=== PATIENT | male | born 1995 | race Caucasian/White ===

== ENCOUNTER 2016-09-30 14:35 | Emergency (ER) | payer OTHER ==
[~2016-09-30] VITALS: Ht 177.8 cm; Wt 82.0 kg
[~2016-09-30 14:35] MED LIST: CEPH500C PO; HYDR-902 PO; HYDR-906 PO; IBUP-1542 PO; PERCOCET PO; POLY17PO6 PO
[2016-09-30 15:21] VITALS: Ht 177.8 cm; Wt 82.0 kg
[2016-09-30 19:06] LABS: ADD UMIC YES; URINE BILIRUBIN (Dip) NEGATIVE (NEGATIVE); URINE BLOOD (Dip) 1+ (NEGATIVE); URINE COLOR LT. YELLOW (YELLOW); URINE GLUCOSE (Dip) NEGATIVE (NEGATIVE); URINE KETONES (Dip) NEGATIVE (NEGATIVE); URINE LEUKOCYTE ESTERASE (Dip) NEGATIVE (NEGATIVE); URINE NITRITE (Dip) NEGATIVE (NEGATIVE); URINE TOTAL PROTEIN (Dip) NEGATIVE (NEGATIVE); URINE UROBILINOGEN (Dip) 0.2 E.U./dL (0.1-1.0)
--- NOTE | 2016-09-30 19:13 | RADRPT ---
PROCEDURE: Scrotal ultrasound CLINICAL INDICATION: Left scrotal pain TECHNIQUE: Scrotal ultrasound was performed in multiple obliquities. Pineda scale and color imaging was performed. Images were reviewed on high resolution PACS monitors. COMPARISON: None available FINDINGS: The testes are normal in size and echogenicity. There is normal flow to the bilateral testes. No t esticular mass or cyst is identified. There are trace bilateral hydroceles which may be physiologic .. The epididymides are normal. There is no evidence for a varicocele. IMPRESSION: 1. Trace bilateral hydroceles which may be physiologic. 2. Otherwise unremarkable scrotal ultrasound. RPTAT: HJBF .Livan Camejo MD, Date Time Electronically viewed and signed by .Livan Camejo MD, MD on 09/30/2016 19:13 .B/
[2016-09-30 19:17] LABS: SQUAMOUS EPITHELIAL CELL,UR RARE; URINE RBCS 0-2 /HPF (0)
[2016-09-30] MEDS ORDERED: IBUP800T25 PO (19:31)
[2016-09-30] MEDS ORDERED: HYDR-906 PO (19:31)
--- NOTE | 2016-09-30 19:36 | ERD ---
ER Documentation Chief Complaint Date/Time DATE: 09/30/16 TIME: 19:34 Chief Complaint Pt with intermittent AP X 2 months, nausea HPI Patient is a 21-year-old male who presents with intermittent left testicular pain that he has had for 2 months. He admits to occasional nausea but denies any vomiting. Denies any hematuria, dysuria or increased urinary frequency. Denies any penile discharge or recent unprotected sex. Denies fever. Denies any diarrhea. He describes the pain as a tingling sensation and at this time he denies any pain. Denies any swelling. ROS All systems reviewed and are negative except as per history of present illness. Medications Home Meds Active Scripts Hydrocodone/Acetaminophen ([place] 5-325 Tablet) 1 Each Tablet, 1 TAB PO Q6H Y for PAIN, #20 TAB Prov:GERSON SANTAMARIA PA-C 09/30/16 Ibuprofen* (Motrin*) 800 Mg Tab, 800 MG PO Q6, #30 TAB Prov:GERSON SANTAMARIA PA-C 09/30/16 Polyethylene Glycol* (Miralax*) 17 Gm Powd.pack, 17 GM PO DAILY Y for CONSTIPATION, #7 Prov:JOSE JUDD MD 09/24/16 Ibuprofen* (Motrin*) 600 Mg Tab, 600 MG PO Q6H Y for PAIN AND OR ELEVATED TEMP, #30 TAB Prov:ANETTE BURNETT MD 09/18/16 Hydrocodone/Acetaminophen ([place] 5-325 Tablet) 1 Each Tablet, 1 TAB PO Q6H Y for PAIN, #10 TAB Prov:WEST LAWSON PA-C 07/14/16 Hydrocodone/Acetaminophen ([place] 10-325 Tablet) 1 Each Tablet, 1 TAB PO Q6H Y for PAIN, #7 TAB Prov:ANETTE BURNETT MD 07/08/16 Cephalexin* (Cephalexin*) 500 Mg Capsule, 500 MG PO TID, #21 CAP Prov:JUAN DON MD 07/07/16 Oxycodone Hcl/Acetaminophen (Percocet) 1 Tab Tab, 1 TAB PO Q4H Y for MILD PAIN ( 1-3), #1 TAB Prov:JUAN DON MD 07/07/16 Allergies Allergies: Coded Allergies: No Known Allergy (Unverified , 09/30/16) PMhx/Soc History of Surgery: Yes (appendectomy on 07/06/16) Anesthesia Reaction: No Hx Neurological Disorder: No Hx Respiratory Disorders: No Hx Cardiac Disorders: No Hx Psychiatric Problems: No Hx Miscellaneous Medical Probl: No Hx Alcohol Use: Yes (ocassional ) Hx Substance Use: No Hx Tobacco Use: No Smoking Status: Never smoker FmHx Family History: No diabetes Physical Exam Vitals Vital Signs Date Time Temp Pulse Resp B/P Pulse Ox O2 Delivery O2 Flow Rate FiO2 09/30/16 15:21 98.5 69 20 123/65 98 Physical Exam General: well developed, well nourished, alert, nontoxic, no distress Head: normocephalic, atraumatic Neck: Supple, nontender, no lymphadenopathy, no midline tenderness Respiratory: Clear to auscaultation bilaterally, speaks in full sentences, no use of accesory muscles or labored breathing, no rales, ronchi, or wheezing Cardiovascular: RRR, No murmurs GI: soft, non tender, non distended, negative murphys sign, negative mcburneys point tenderness, no cva tenderness bilaterally, no rebound or guarding gu: No inguinal lymphadenopathy, bilateral testicles are nonedematous and nontender, no masses, no penile discharge Results 24 hrs Laboratory Tests Test 09/30/16 18:34 Urine Bilirubin NEGATIVE Urine Clarity CLEAR Urine Color LT. YELLOW Urine Glucose NEGATIVE% Urine Hemoglobin 1+ Urine Ketones NEGATIVE Urine Leukocyte Esterase NEGATIVE Urine Microscopic RBC 0-2/HPF Urine Microscopic WBC 0-2/HPF Urine Nitrite NEGATIVE Urine Specific [place] 1.025 Urine Squamous Epithelial Cells RARE Urine Total Protein NEGATIVE Urine Urobilinogen 0.2 E.U./dL Urine pH 6.0 Procedures/MDM 21-year-old male presents with intermittent testicular pain. His vital signs are all within normal limits and at this time he has no pain. Examination is normal. Ultrasound was ordered and showed possible trace hydrocele which may be physiological otherwise unremarkable. There is no evidence of torsion. He is afebrile. He is tolerating oral intake. His urine did show 1+ hemoglobin otherwise unremarkable. I reviewed the findings with my supervising physician and we agreed this may be inflammatory versus GC chlamydia. Lower suspicion for kidney stone given patient's presentation and physical exam findings. Patient is status post appendectomy. Patient is discharged with pain medications and instructions to follow-up with primary care. Recommended this patient follow up with her primary care doctor within 48 hours or return to the emergency room for any worsening of symptoms. However this time I do believe there is suitable for outpatient management. I answered all their questions and they agreed with the plan and were discharged home. Departure Diagnosis: Primary Impression: Testicular pain Condition: Stable Patient Instructions: Groin Strain Additional Instructions: Call your primary care doctor TOMORROW for an appointment during the next 1-2 days.See the doctor sooner or return here if your condition worsens before your appointment time. GERSON SANTAMARIA PA-C Sep 30, 2016 19:36
[2016-09-30 19:46] VITALS: BP 129/78; PULSE 70; RESP 18; TEMP 98.3
== END 2016-09-30 19:45 | disposition home or self-care (01) ==
LOC: FTE 14:35
DX: N50.812 Left testicular pain (principal)
CPT/HCPCS: 76870; 81001; 87591; Z7502; 81003

== ENCOUNTER 2016-11-03 17:50 | Emergency (ER) | payer OTHER ==
[~2016-11-03] VITALS: Wt 71.2 kg
[~2016-11-03 17:50] MED LIST changes: +IBUP800T25 PO
[2016-11-03] MEDS ORDERED: HYDROCODONE/APAP (10/325) TAB PO ONE (19:00)
[2016-11-03 19:20] LABS: ADD UMIC YES; URINE BILIRUBIN (Dip) NEGATIVE (NEGATIVE); URINE BLOOD (Dip) TRACE (NEGATIVE); URINE COLOR LT. YELLOW (YELLOW); URINE GLUCOSE (Dip) NEGATIVE (NEGATIVE); URINE KETONES (Dip) NEGATIVE (NEGATIVE); URINE LEUKOCYTE ESTERASE (Dip) NEGATIVE (NEGATIVE); URINE NITRITE (Dip) NEGATIVE (NEGATIVE); URINE TOTAL PROTEIN (Dip) TRACE (NEGATIVE); URINE UROBILINOGEN (Dip) 1.0 E.U./dL (0.1-1.0)
[2016-11-03 19:21] LABS: BASOPHILS % 0.5 % (0.0-2.0); EOSINOPHILS # 0.2 10^3/ul (0.0-0.5); EOSINOPHILS % 2.3 % (0.0-7.0); HEMATOCRIT 45.3 % (42.0-52.0); HEMOGLOBIN 15.4 g/dl (14.0-18.0); LYMPHOCYTES % 23.3 % (15.0-51.0); MEAN CORPUSCULAR HEMOGLOBIN 30.3 pg (29.0-33.0); MEAN CORPUSCULAR VOLUME 89.2 fl (82.0-101.0); MEAN PLATELET VOLUME 7.6 fl (7.4-10.4); MONOCYTE # 0.5 10^3/ul (0.3-0.9); MONOCYTES % 5.6 % (0.0-11.0); NEUTROPHIL # 5.9 10^3/ul (1.6-7.5); NEUTROPHILS % 68.3 % (39.0-77.0); PLATELET COUNT 219 10^3/UL (140-440); RED BLOOD COUNT 5.08 10^6/ul (4.70-6.10); UNCORRECTED WBC 8.7 10^3/ul (4.8-10.8); WHITE BLOOD COUNT 8.7 10^3/ul (4.8-10.8)
[2016-11-03 19:22] LABS: CONDITION 1
[2016-11-03 19:31] LABS: ALBUMIN 4.7 g/dl (3.3-4.9); POTASSIUM 4.9 mmol/L (3.5-5.1)
[2016-11-03 19:33] LABS: CREATININE 0.72 mg/dl (0.61-1.24)
--- NOTE | 2016-11-03 19:33 | ERD ---
ER Documentation Chief Complaint Date/Time DATE: 11/03/16 TIME: 19:31 Chief Complaint intermittent abd pain since a few wks. left testicle pain no swelling HPI 21-year-old male with a history of hydrocele and appendectomy in June comes to emergency room with lower abdominal pain that started acutely this afternoon while he was driving. Patient states he has had suprapubic abdominal pain that radiates to his left lower quadrant and has had several episodes of diarrhea that are nonbloody stools. He has had 2 months of scrotal pain, he has been seen here recently and had a scrotal ultrasound that showed hydroceles only. He denies any change of his pain in the scrotum, no fevers or chills or dysuria , urgency or penile discharge or rashes. He denies any fevers, chills, nausea or vomiting. ROS All systems reviewed and are negative except as per history of present illness. Medications Home Meds Active Scripts Dicyclomine Hcl* (Bentyl*) 10 Mg Capsule, 10 MG PO QID, #15 CAP Prov:WEST LAWSON PA-C 11/03/16 Docusate Sodium* (Colace*) 100 Mg Capsule, 100 MG PO TID, #30 CAP Prov:WEST LAWSON PA-C 11/03/16 Hydrocodone/Acetaminophen (Valley 5-325 Tablet) 1 Each Tablet, 1 TAB PO Q6H Y for PAIN, #20 TAB Prov:GERSON SANTAMARIA PA-C 09/30/16 Ibuprofen* (Motrin*) 800 Mg Tab, 800 MG PO Q6, #30 TAB Prov:GERSON SANTAMARIA PA-C 09/30/16 Polyethylene Glycol* (Miralax*) 17 Gm Powd.pack, 17 GM PO DAILY Y for CONSTIPATION, #7 Prov:JOSE JUDD MD 09/24/16 Ibuprofen* (Motrin*) 600 Mg Tab, 600 MG PO Q6H Y for PAIN AND OR ELEVATED TEMP, #30 TAB Prov:ANETTE BURNETT MD 09/18/16 Hydrocodone/Acetaminophen ([place] 5-325 Tablet) 1 Each Tablet, 1 TAB PO Q6H Y for PAIN, #10 TAB Prov:WEST LAWSON PA-C 07/14/16 Hydrocodone/Acetaminophen ([place] 10-325 Tablet) 1 Each Tablet, 1 TAB PO Q6H Y for PAIN, #7 TAB Prov:ANETTE BURNETT MD 07/08/16 Cephalexin* (Cephalexin*) 500 Mg Capsule, 500 MG PO TID, #21 CAP Prov:JUAN DON MD 07/07/16 Oxycodone Hcl/Acetaminophen (Percocet) 1 Tab Tab, 1 TAB PO Q4H Y for MILD PAIN ( 1-3), #1 TAB Prov:JUAN DON MD 07/07/16 Allergies Allergies: Coded Allergies: No Known Allergy (Unverified , 09/30/16) PMhx/Soc History of Surgery: Yes (appendectomy on 07/06/16) Anesthesia Reaction: No Hx Neurological Disorder: No Hx Respiratory Disorders: No Hx Cardiac Disorders: No Hx Psychiatric Problems: No Hx Miscellaneous Medical Probl: No Hx Alcohol Use: Yes (ocassional ) Hx Substance Use: No Hx Tobacco Use: No Physical Exam Vitals Vital Signs Date Time Temp Pulse Resp B/P Pulse Ox O2 Delivery O2 Flow Rate FiO2 11/03/16 20:06 70 16 134/73 100 Room Air 11/03/16 17:56 98.2 92 20 134/66 99 Physical Exam General: Well-developed, well-nourished. The patient appears in no acute distress. HEENT: Head is normocephalic, atraumatic. No scleral icterus. Pupils are equal , round, and reactive. Oral mucous membranes are moist. No pharyngeal erythema. Neck: Supple. Nontender. Lungs: Clear to auscultation. Normal air movement. Heart: Regular rate and rhythm. S1 and S2 are normal. No murmurs, gallops, or rubs. Abdomen: Soft, nontender, nondistended. Bowel sounds are normoactive. exam: performed by Brittani Fam, [employer] gen cremasteric reflex, no masses, no erythema, no rashes Extremities: No clubbing or cyanosis. Normal pulses. Moving extremities x 4. No weakness. Neurologic: Alert and oriented 3. No focal deficits. Skin: Normal turgor. No rash or lesions. Result Diagram: 11/03/16190211/03/161902 Results 24 hrs Laboratory Tests Test 11/03/16 19:03 11/03/16 19:06 Alanine Aminotransferase (ALT/SGPT) 26IU/L Albumin 4.7g/dl Albumin/Globulin Ratio 1.42 Alkaline Phosphatase 74IU/L Anion Gap 18 Aspartate Amino Transf (AST/SGOT) 17IU/L Basophils # 0.010^3/ul Basophils % 0.5% Blood Urea Nitrogen 14mg/dl Calcium Level 9.9mg/dl Carbon Dioxide Level 30mmol/L Chloride Level 104mmol/L Creatinine 0.72mg/dl Direct Bilirubin 0.00mg/dl Eosinophils # 0.210^3/ul Eosinophils % 2.3% Globulin 3.30g/dl Glucose Level 99mg/dl Hematocrit 45.3% Hemoglobin 15.4g/dl Indirect Bilirubin 0.6mg/dl Lipase 55U/L Lymphocytes # 2.010^3/ul Lymphocytes % 23.3% Mean Corpuscular Hemoglobin 30.3pg Mean Corpuscular Hemoglobin Concent 34.0g/dl Mean Corpuscular Volume 89.2fl Mean Platelet Volume 7.6fl Monocytes # 0.510^3/ul Monocytes % 5.6% Neutrophils # 5.910^3/ul Neutrophils % 68.3% Nucleated Red Blood Cells # 0.010^3/ul Nucleated Red Blood Cells % 0.0/100WBC Platelet Count 82563^3/UL Potassium Level 4.9mmol/L Red Blood Count 5.0810^6/ul Red Cell Distribution Width 13.0% Sodium Level 147mmol/L Total Bilirubin 0.6mg/dl Total Protein 8.0g/dl White Blood Count 8.710^3/ul Urine Bilirubin NEGATIVE Urine Clarity CLEAR Urine Color LT. YELLOW Urine Glucose NEGATIVE% Urine Hemoglobin TRACE Urine Ketones NEGATIVE Urine Leukocyte Esterase NEGATIVE Urine Microscopic RBC 2-5/HPF Urine Microscopic WBC 0-2/HPF Urine Nitrite NEGATIVE Urine Specific [place] 1.015 Urine Squamous Epithelial Cells OCCASIONAL Urine Total Protein TRACE Urine Urobilinogen 1.0 E.U./dL Urine pH 8.0 Current Medications Medications (Trade) Dose Ordered Sig/Chepe Route PRN Reason Start Time Stop Time Status Last Admin Dose Admin Acetaminophen/ Hydrocodone Bitart (Valley ([id number])) 1 tab ONCE ONCE PO 11/03/16 19:00 11/03/16 19:01 DC 11/03/16 19:00 PROCEDURE: CT abdomen and pelvis without IV contrast. CLINICAL INDICATION: Abdominal pain TECHNIQUE: CT scan of the abdomen and pelvis without contrast was performed on the [employer] volumetric [address] scanner. The patient was scanned without intravenous contrast. Coronal and sagittal reformatted images were obtained from the axial source images. The CTDI vol is 10.2 mGy and the DLP is 609.76 mGy -cm. COMPARISON: None. FINDINGS: CT abdomen: The lung bases are clear. The heart size is not enlarged and is without pericardial thickening or effusion. The liver is normal in size and density and is without focal mass or intrahepatic biliary dilatation. The spleen is normal in size and homogeneous in density. The stomach is grossly unremarkable. The pancreas as visualized is normal. The gallbladder and biliary tree are unremarkable and there is no evidence for common bile duct dilatation. The adrenal glands are symmetric and normal. The kidneys are symmetrically unremarkable as well. No renal calculus or obstructive uropathy or mass lesion is seen. The aorta is of normal in caliber. There is no retroperitoneal lymphadenopathy. The socorro hepatis region is clear. The large bowel is stool- filled. The small and large bowel and mesentery, as visualized, are otherwise unremarkable. No inflammatory changes in the periappendiceal region is seen. CT pelvis: The pelvic organs are normal. The pelvic sidewalls and inguinal regions are clear. No pelvic mass, lymphadenopathy, or free fluid is seen. No acute inflammation is seen. The urinary bladder is within normal limits. The surrounding osseous structures are unremarkable. No osteolytic or osteoblastic lesion is detected. IMPRESSION: 1. No acute pathology in the abdomen and pelvis. 2. Stool filled large bowel. RPTAT: HPNM Physician Janell Date Time Electronically viewed and signed by Physician Janell on 11/03/2016 19 :51 / PROCEDURE: Scrotal ultrasound CLINICAL INDICATION: Testicular pain TECHNIQUE: Multiple cheng scale, color Doppler, and spectral Doppler images of the scrotum were obtained. Images were reviewed on a high-resolution PACS workstation. COMPARISON: 09/30/2016 FINDINGS: The right testes measures 2.7 x 2.4 x 4.4 cm and the left testes measures 4.7 x 2.1 x 2.[address]stes are normal in size and echogenicity with normal color flow. The right epididymis measures 8.6 x 6.3 x 7.7 mm and the left epididymis measures 12.8 x 4.9 x 4.5 mm. The epididymis bilaterally are normal in size and echogenicity. Small bilateral hydroceles are again seen. No varicocele is identified. IMPRESSION: Small bilateral hydroceles again seen which have not changed significantly. RPTAT: HPNM Physician Janell Date Time Electronically viewed and signed by Physician Janell on 11/03/2016 19 :53 / CC: [facility] ED course: Patient was given Valley for pain. Labs and urine as well as ultrasound CT were ordered. MDM: 21-year-old male with history of acute appendicitis comes in with scrotal pain and abdominal pain. Patient's workup was negative for any acute or surgical process, including testicular torsion. This patient appears to have chronic abdominal pain, he does have evidence of constipation seen on the CT scan will be treated for this. He was asked to discontinue narcotic medication as this may exacerbate his pain. Departure Diagnosis: Primary Impression: Abdominal pain Condition: WEST Navarrete PA-C Nov 03, 2016 19:33
[2016-11-03 19:34] LABS: ALBUMIN/GLOBULIN RATIO 1.42; BILIRUBIN,INDIRECT 0.6 mg/dl (0-1.1); BILIRUBIN,TOTAL 0.6 mg/dl (0.2-1.3); CALCIUM 9.9 mg/dl (8.4-10.2)
[2016-11-03 19:42] LABS: SQUAMOUS EPITHELIAL CELL,UR OCCASIONAL
--- NOTE | 2016-11-03 19:51 | RADRPT ---
PROCEDURE: CT abdomen and pelvis without IV contrast. CLINICAL INDICATION: Abdominal pain TECHNIQUE: CT scan of the abdomen and pelvis without contrast was performed on the [employer] volumetric [address] scanner. The patient was scanned without intravenous contrast. Coronal and sagittal refo rmatted images were obtained from the axial source images. The CTDI vol is 10.2 mGy and the DLP is 6 09.76 mGy-cm. COMPARISON: None. FINDINGS: CT abdomen: The lung bases are clear. The heart size is not enlarged and is without pericardial thickening or e ffusion. The liver is normal in size and density and is without focal mass or intrahepatic biliary dilatation . The spleen is normal in size and homogeneous in density. The stomach is grossly unremarkable. T he pancreas as visualized is normal. The gallbladder and biliary tree are unremarkable and there is no evidence for common bile duct dilatation. The adrenal glands are symmetric and normal. The kid neys are symmetrically unremarkable as well. No renal calculus or obstructive uropathy or mass lesi on is seen. The aorta is of normal in caliber. There is no retroperitoneal lymphadenopathy. The socorro hepatis region is clear. The large bowel is stool-filled. The small and large bowel and mesentery, as visu alized, are otherwise unremarkable. No inflammatory changes in the periappendiceal region is seen. CT pelvis: The pelvic organs are normal. The pelvic sidewalls and inguinal regions are clear. No pelvic mass, lymphadenopathy, or free fluid is seen. No acute inflammation is seen. The urinary bladder is wit hin normal limits. The surrounding osseous structures are unremarkable. No osteolytic or osteoblastic lesion is detect ed. IMPRESSION: 1. No acute pathology in the abdomen and pelvis. 2. Stool filled large bowel. RPTAT: HPNM Physician Janell Date Time Electronically viewed and signed by Physician Janell on 11/03/2016 19:51 /
--- NOTE | 2016-11-03 19:53 | RADRPT ---
PROCEDURE: Scrotal ultrasound CLINICAL INDICATION: Testicular pain TECHNIQUE: Multiple cheng scale, color Doppler, and spectral Doppler images of the scrotum were obt ained. Images were reviewed on a high-resolution PACS workstation. COMPARISON: 09/30/2016 FINDINGS: The right testes measures 2.7 x 2.4 x 4.4 cm and the left testes measures 4.7 x 2.1 x 2.[address] stes are normal in size and echogenicity with normal color flow. The right epididymis measures 8.6 x 6.3 x 7.7 mm and the left epididymis measures 12.8 x 4.9 x 4.5 mm. The epididymis bilaterally are normal in size and echogenicity. Small bilateral hydroceles are again seen. No varicocele is identi fied. IMPRESSION: Small bilateral hydroceles again seen which have not changed significantly. RPTAT: HPNM Physician Janell Date Time Electronically viewed and signed by Physician Janell on 11/03/2016 19:53 /
[2016-11-03] MEDS ORDERED: DOCU-144 PO (19:59)
[2016-11-03] MEDS ORDERED: DICY10CA60 PO (19:59)
[2016-11-03 20:06] VITALS: BP 134/73; PULSE 70; RESP 16
== END 2016-11-03 20:09 | disposition home or self-care (01) ==
LOC: FTE 17:50
DX: R10.30 Lower abdominal pain, unspecified (principal)
CPT/HCPCS: 74176; 76870; 80053; 81001; 83690; 85025; Z7610; 36415; 81003; 99285

== ENCOUNTER 2017-01-17 22:23 | Emergency (ER) | payer OTHER ==
[~2017-01-17] VITALS: Ht 177.8 cm; Wt 81.5 kg
[~2017-01-17 22:23] MED LIST changes: +DICY10CA60 PO; +DOCU-144 PO
[2017-01-17 22:30] VITALS: Ht 177.8 cm; Wt 81.5 kg
[2017-01-17] MEDS ORDERED: IBUP-1542 PO (23:47)
--- NOTE | 2017-01-17 23:54 | ERA ---
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 Patient now has increased pain in the right groin area where he sustained the injury. Patient has tried ibuprofen and conservative therapy with mild to moderate relief. Patient's pain worsens with movement. Patient has not consistently tried conservative therapy. Patient denies dysuria , hematuria, loss of bowel or bladder function, radiation of pain down the leg, loss of sensation pain in the lower leg. Rest improves symptoms. ROS All systems reviewed and are negative except as per history of present illness. Medications Home Meds Active Scripts Ibuprofen* (Motrin*) 600 Mg Tab, 600 MG PO Q6, #30 TAB Prov:NELLIE CLEMENTE PA-C 01/17/17 Dicyclomine Hcl* (Bentyl*) 10 Mg Capsule, 10 MG PO QID, #15 CAP Prov:WEST LAWSON PA-C 11/03/16 Docusate Sodium* (Colace*) 100 Mg Capsule, 100 MG PO TID, #30 CAP Prov:WEST LAWSON PA-C 11/03/16 Hydrocodone/Acetaminophen ([place] 5-325 Tablet) 1 Each Tablet, 1 TAB PO Q6H Y for PAIN, #20 TAB Prov:GERSON SANTAMARIA PA-C 09/30/16 Ibuprofen* (Motrin*) 800 Mg Tab, 800 MG PO Q6, #30 TAB Prov:GERSON SANTAMARIA PA-C 09/30/16 Polyethylene Glycol* (Miralax*) 17 Gm Powd.pack, 17 GM PO DAILY Y for CONSTIPATION, #7 Prov:JOSE JUDD MD 09/24/16 Ibuprofen* (Motrin*) 600 Mg Tab, 600 MG PO Q6H Y for PAIN AND OR ELEVATED TEMP, #30 TAB Prov:ANETTE BURNETT MD 09/18/16 Hydrocodone/Acetaminophen ([place] 5-325 Tablet) 1 Each Tablet, 1 TAB PO Q6H Y for PAIN, #10 TAB Prov:WEST LAWSON PA-C 07/14/16 Hydrocodone/Acetaminophen ([place] 10-325 Tablet) 1 Each Tablet, 1 TAB PO Q6H Y for PAIN, #7 TAB Prov:ANETTE BURNETT MD 07/08/16 Cephalexin* (Cephalexin*) 500 Mg Capsule, 500 MG PO TID, #21 CAP Prov:JUAN DON MD 07/07/16 Oxycodone Hcl/Acetaminophen (Percocet) 1 Tab Tab, 1 TAB PO Q4H Y for MILD PAIN ( 1-3), #1 TAB Prov:JUAN DON MD 07/07/16 Allergies Allergies: Coded Allergies: No Known Allergy (Unverified , 01/17/17) PMhx/Soc History of Surgery: Yes (appendectomy on 07/06/16) Anesthesia Reaction: No Hx Neurological Disorder: No Hx Respiratory Disorders: No Hx Cardiac Disorders: No Hx Psychiatric Problems: No Hx Miscellaneous Medical Probl: No Hx Alcohol Use: Yes (ocassional ) Hx Substance Use: No Hx Tobacco Use: No Physical Exam Vitals Vital Signs Date Time Temp Pulse Resp B/P Pulse Ox O2 Delivery O2 Flow Rate FiO2 01/17/17 22:30 98.0 60 20 122/72 100 Physical Exam Const: Well-appearing 21-year-old male in no acute distress. Head: Atraumatic Eyes: Normal Conjunctiva ENT: Normal External Ears, Nose and Mouth. Neck: Full range of motion..~ No meningismus. Resp: Clear to auscultation bilaterally Cardio: Regular rate and rhythm, no murmurs Abd: Soft, non tender, non distended. Normal bowel sounds Skin: No petechiae or rashes Back: No midline or flank tenderness Ext: No cyanosis, or edema. Negative Syd test. Negative straight leg raise. No tenderness to palpation. Pain with extension and abduction internal and external rotation. Passive external rotation elicits pain as well. Neur: Awake and alert Psych: Normal Mood and Affect Procedures/MDM Most likely diagnosis at this time is a strain/sprain of groin muscle. Patient has a negative Syd test and a negative straight leg test. Patient denies any back pain. At this time I have low suspicion for spinal cord involvement. We will go ahead and discharge patient with conservative therapy including rice treatment and ibuprofen. Have instructed the patient to return to clinic if symptoms worsen or persist. Have instructed the patient to also stay off the injured area and trampolines. He says he does not need to be jumping for work. Vitals are stable and he is ready for discharge. Departure Diagnosis: Primary Impression: Strain of muscle of right groin region Additional Impression: Injury of groin Qualified Code: S39.91XA - Injury of groin, initial encounter Condition: Stable Patient Instructions: Groin Strain Additional Instructions: Follow up with your PCP within the next 1-3 days for a more thorough evaluation and a possible referral to a specialist. Return the the emergency department immediately if symptoms worsen or change. If you have any questions regarding medications, ask your pharmacist or us before you leave. If any adverse reactions occur while taking your medications, discontinue the treatment and return to the emergency department immediately. Take your medications as directed, and complete the entire course of treatment. NELLIE CLEMENTE PA-C Jan 17, 2017 23:54
== END 2017-01-17 23:50 | disposition home or self-care (01) ==
LOC: FTE 22:23
DX: S39.011A Strain of muscle, fascia and tendon of abdomen, initial encounter (principal); X50.9XXA Other and unspecified overexertion or strenuous movements or postures, initial encounter; Y92.9 Unspecified place or not applicable
CPT/HCPCS: 99283

== ENCOUNTER 2017-12-23 22:18 | Emergency (ER) | END 2017-12-24 03:04 | disposition left against medical advice (07) ==

== ENCOUNTER 2018-04-15 11:31 | Emergency (ER) | END 2018-04-15 13:28 | disposition home or self-care (01) ==

== ENCOUNTER 2018-07-05 10:06 | Emergency (ER) | END 2018-07-05 14:25 | disposition home or self-care (01) ==

== ENCOUNTER 2018-09-15 16:29 | Emergency (ER) | END 2018-09-15 19:27 | disposition home or self-care (01) ==

== ENCOUNTER 2018-09-21 13:54 | Emergency (ER) | END 2018-09-21 18:25 | disposition home or self-care (01) ==

== ENCOUNTER 2018-10-12 14:48 | Emergency (ER) | payer OTHER ==
[~2018-10-12] VITALS: Wt 80.6 kg
[~2018-10-12 14:48] MED LIST changes: +ACET500C5 PO; +BEN25 PO; +CIPR-193 PO; +DICY10CA40 PO; -DICY10CA60 PO; +DOXY100T21 PO; +FAMO-96 PO; +HC30CR25 TOP; +HYDR-3980 PO; +HYDR-4011 PO; -HYDR-902 PO; -HYDR-906 PO; -IBUP800T25 PO; +IBUP800T48 PO; +LORA-186 PO; +MUPI22OI2 TOP; +NAPR-985 PO; +ONDA4TAB8 PO; +PROM5SYR2 PO; +RANI150T35 PO; +[UNRECOGNIZED DRUG - CODE] TP
[2018-10-12 14:53] VITALS: BP 121/71; PULSE 73; RESP 19
[2018-10-12] MEDS ORDERED: BENZ-6 PO (15:15)
[2018-10-12] MEDS ORDERED: PROM6.2515 PO (15:15)
[2018-10-12] MEDS ORDERED: ALBU8.5H8 INH (15:15)
--- NOTE | 2018-10-12 15:23 | ERD ---
ER Documentation Chief Complaint Chief Complaint bib self, cc: cough, fever, body aches x 2 days HPI 23 yr old male complaining of URI type symptoms. Patient's been coughing and sneezing. Has a dry cough with a runny nose. Patient took Advil and has no fevers. Denies medical problems. NKDA. Surgical history is appendectomy. Social history denies ROS All systems reviewed and are negative except as per history of present illness. Medications Home Meds Active Scripts Albuterol Sulfate* (Proair HFA*) 8.5 Gm Hfa.aer.ad, 2 PUFF INH Q4, #1 INHALER Prov:GABINO CEBALLOS PA-C 10/12/18 Benzonatate* (Tessalon Perle*) 100 Mg Capsule, 100 MG PO Q8H PRN for COUGH, #30 CAP Prov:GABINO CEBALLOS PA-C 10/12/18 Promethazine Hcl* (Promethazine Hcl* Syrup) 6.25 Mg/5 Ml Syrup, 6.25 MG PO Q6H PRN for COUGH, #100 ML Prov:GABINO CEBALLOS PA-C 10/12/18 Ondansetron Hcl* (Zofran*) 4 Mg Tablet, 4 MG PO Q6H for NAUSEA AND/OR VOMITING, #12 TAB Prov:JENNIFER CHOE MD 09/21/18 Ranitidine Hcl* (Zantac*) 150 Mg Tablet, 150 MG PO BID PRN for EPIGASTRIC PAIN f or 5 Days, #10 TAB Prov:JENNIFER CHOE MD 09/21/18 Ciprofloxacin Hcl* (Ciprofloxacin Hcl*) 250 Mg Tablet, 250 MG PO BID for 3 Days, #6 TAB Prov:JENNIFER CHOE MD 09/21/18 Benzoyl Peroxide (ACNE TREATMENT) 28 Gm Gel..gram., 28 GM TP BID for 30 Days Prov:EUGENIE AUSTIN MD 09/15/18 Doxycycline Monohydrate* (Doxycycline Monohydrate*) 100 Mg Tablet, 100 MG PO BID for 14 Days, TAB Prov:EUGENIE AUSTIN MD 09/15/18 Promethazine HCl/Codeine (Prometh-Codein 6.25-10 mg/5 ml) 5 Ml Syrup, 5 ML PO QHS for 5 Days 4 oz Prov:EUGENIE AUSTIN MD 09/15/18 Famotidine* (Pepcid*) 20 Mg Tablet, 20 MG PO BID for 14 Days, #30 TAB Prov:EUGENIE AUSTIN MD 07/05/18 Acetaminophen* (Tylophen*) 500 Mg Capsule, 1 CAP PO Q6H PRN for PAIN AND OR ELEVATED TEMP, #15 CAP Prov:EUGENIE AUSTIN MD 07/05/18 Mupirocin* (Bactroban*) 2% -22 Gram Oint...g., 1 APPLIC TOP BID for 7 Days, EA Prov:CINTHIA VANESSA PA-C 04/15/18 Naproxen* (Naprosyn*) 500 Mg Tablet, 500 MG PO BID PRN for PAIN AND/OR INFLAMMATION, #30 TAB Prov:CINTHIA VANESSA PA-C 04/15/18 Loratadine* (Claritin*) 10 Mg Tablet, 10 MG PO DAILY for 15 Days, #15 TAB Prov:JUWAN,RYAN 02/10/18 Diphenhydramine Hcl* (Benadryl*) 25 Mg Cap, 25 MG PO Q6, #30 CAP Prov:JUWAN,RYAN 02/10/18 Hydrocortisone* Topical (Hydrocortisone* Topical) 2.5%-28.3 Gm Cream..g., 1 APPLIC TOP BID for 7 Days, #1 TUB Prov:JUWAN,RYAN 02/10/18 Ibuprofen* (Motrin*) 600 Mg Tab, 600 MG PO Q6, #30 TAB Prov:NELLIE CLEMENTE PA-C 01/17/17 Dicyclomine HCl (Dicyclomine HCl) 10 Mg Capsule, 10 MG PO QID, #15 CAP Prov:WEST LAWSON PA-C 11/03/16 Docusate Sodium* (Colace*) 100 Mg Capsule, 100 MG PO TID, #30 CAP Prov:WEST LAWSON PA-C 11/03/16 Hydrocodone/Acetaminophen ([place] 5-325 Tablet) 1 Each Tablet, 1 TAB PO Q6H PRN for PAIN, #20 TAB Prov:GERSON SANTAMARIA PA-C 09/30/16 Ibuprofen* (Motrin*) 800 Mg Tab, 800 MG PO Q6, #30 TAB Prov:GERSON SANTAMARIA PA-C 09/30/16 Polyethylene Glycol* (Miralax*) 17 Gm Powd.pack, 17 GM PO DAILY PRN for CONSTIPATION, #7 Prov:JOSE JUDD MD 09/24/16 Ibuprofen* (Motrin*) 600 Mg Tab, 600 MG PO Q6H PRN for PAIN AND OR ELEVATED TEMP, #30 TAB Prov:ANETTE BURNETT MD 09/18/16 Hydrocodone/Acetaminophen ([place] 5-325 Tablet) 1 Each Tablet, 1 TAB PO Q6H PRN for PAIN, #10 TAB Prov:WEST LAWSON PA-C 07/14/16 Hydrocodone/Acetaminophen ([place] 10-325 Tablet) 1 Each Tablet, 1 TAB PO Q6H PRN for PAIN, #7 TAB Prov:ANETTE BURNETT MD 07/08/16 Cephalexin* (Cephalexin*) 500 Mg Capsule, 500 MG PO TID, #21 CAP Prov:JUAN DON MD 07/07/16 Oxycodone Hcl/Acetaminophen (Percocet) 1 Tab Tab, 1 TAB PO Q4H PRN for MILD PAIN (1-3), #1 TAB Prov:JUAN DON MD 07/07/16 Allergies Allergies: Coded Allergies: No Known Allergy (Unverified , 10/12/18) PMhx/Soc History of Surgery: Yes (appendectomy on 07/06/16) Anesthesia Reaction: No Hx Neurological Disorder: No Hx Respiratory Disorders: No Hx Cardiac Disorders: No Hx Psychiatric Problems: No Hx Miscellaneous Medical Probl: No Hx Alcohol Use: Yes (ocassional ) Hx Substance Use: Yes (occasional marijuana) Hx Tobacco Use: No Smoking Status: Never smoker FmHx Family History: No diabetes, No coronary disease, No other Physical Exam Vitals Vital Signs Date Temp Pulse Resp B/P (MAP) Pulse Ox O2 O2 Flow FiO2 Time Delivery Rate 10/12/18 97.5 73 19 121/71 100 14:53 (88) Physical Exam GENERAL: The patient is well-appearing, well-nourished, in no acute distress HEENT: Atraumatic. Conjunctivae are pink. Pupils equal, round, and reactive to light. There is no scleral icterus. Tympanic membranes clear bilaterally. Oropharynx clear. NECK: C-spine is soft and supple. There is no meningismus. There is no cervical lymphadenopathy. CHEST: Clear to auscultation bilaterally. There are no rales, wheezes or rhonchi. HEART: Regular rate and rhythm. No murmurs, clicks, rubs or gallops. Procedures/MDM MDM: 23-year-old male presenting with cough and runny nose. I have low suspicion for pneumonia. I have low suspicion for bacterial infection. I will suspicion for respiratory distress or hypoxia. Patient likely has viral syndrome. Patient is discharged with supportive medications. Patient is told symptoms change or worsen to immediately return to the ER. All questions answered at discharge Departure Diagnosis: Primary Impression: URI (upper respiratory infection) Condition: Stable Patient Instructions: Uri, Viral, No Abx (Adult) Referrals: [facility] YOU HAVE RECEIVED A MEDICAL SCREENING EXAM AND THE RESULTS INDICATE THAT YOU DO NOT HAVE A CONDITION THAT REQUIRES URGENT TREATMENT IN THE EMERGENCY DEPARTMENT. FURTHER EVALUATION AND TREATMENT OF YOUR CONDITION CAN WAIT UNTIL YOU ARE SEEN IN YOUR DOCTORS OFFICE WITHIN THE NEXT 1-2 DAYS. IT IS YOUR RESPONSIBILITY TO MAKE AN APPOINTMENT FOR FOLOW-UP CARE. IF YOU HAVE A PRIMARY DOCTOR --you should call your primary doctor and schedule an appointment IF YOU DO NOT HAVE A PRIMARY DOCTOR YOU CAN CALL OUR PHYSICIAN REFERRAL HOTLINE AT IF YOU CAN NOT AFFORD TO SEE A PHYSICIAN YOU CAN CHOSE FROM THE FOLLOWING [facility] [address] [facility] [facility] [address] [facility] [facility] [address] [facility] [facility] [address] [facility]. [facility] [address] [facility]. [facility] [address] Additional Instructions: FOLLOW UP WITH YOUR PRIMARY CARE PHYSICIAN TOMORROW.Return to this facility if you are not improving as expected. GABINO CEBALLOS PA-C Oct 12, 2018 15:23
== END 2018-10-12 15:25 | disposition home or self-care (01) ==
LOC: FTE 14:48
DX: J06.9 Acute upper respiratory infection, unspecified (principal)
CPT/HCPCS: 99283

== ENCOUNTER 2018-12-30 10:17 | Emergency (ER) | payer OTHER ==
[~2018-12-30] VITALS: Ht 188 cm; Wt 80.0 kg
[~2018-12-30 10:17] MED LIST changes: +ALBU8.5H8 INH; +BENZ-6 PO; +PROM6.2515 PO
[2018-12-30 10:18] VITALS: BP 131/77; PULSE 67; RESP 18; Ht 188 cm; Wt 80.0 kg
[2018-12-30] MEDS ORDERED: LIDOCAINE/MYLANTA 40 ML BTL PO ONE (11:30)
[2018-12-30] MEDS ORDERED: PANTOPRAZOLE (EC) 40 MG TAB PO ONE (11:30)
--- NOTE | 2018-12-30 12:25 | ERD ---
ER Documentation Chief Complaint Chief Complaint abdominal pain & diarrhea x3 days HPI This is a 23-year-old male patient who presents to the emergency room with complaint of abdominal pain x3 days. 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 Patient is concerned because yesterday he had what he is describing as black stools during a bowel movement. Denies any bright red blood or "coffee ground " type of stool. Has been seen at this emergency department several times for this same complaint. Patient has been encouraged to follow-up with primary care doctor or GI in the past, patient has not received follow-up care outside of the emergency room. He denies any other concerning symptoms such as fever, weakness, no nausea or vomiting. Patient denies chest pain, no shortness of breath. ROS All systems reviewed and are negative except as per history of present illness. Medications Home Meds Active Scripts Pantoprazole* (Protonix*) 40 Mg Tablet.dr, 40 MG PO DAILY, #30 TAB Prov:DUYEN RAE NP 12/30/18 Albuterol Sulfate* (Proair HFA*) 8.5 Gm Hfa.aer.ad, 2 PUFF INH Q4, #1 INHALER Prov:GABINO CEBALLOS PA-C 10/12/18 Benzonatate* (Tessalon Perle*) 100 Mg Capsule, 100 MG PO Q8H PRN for COUGH, #30 CAP Prov:GABINO CEBALLOS PA-C 10/12/18 Promethazine Hcl* (Promethazine Hcl* Syrup) 6.25 Mg/5 Ml Syrup, 6.25 MG PO Q6H PRN for COUGH, #100 ML Prov:GABINO CEBALLOS PA-C 10/12/18 Ondansetron Hcl* (Zofran*) 4 Mg Tablet, 4 MG PO Q6H for NAUSEA AND/OR VOMITING, #12 TAB Prov:JENNIFER CHOE MD 09/21/18 Ranitidine Hcl* (Zantac*) 150 Mg Tablet, 150 MG PO BID PRN for EPIGASTRIC PAIN for 5 Days, #10 TAB Prov:JENNIFER CHOE MD 09/21/18 Ciprofloxacin Hcl* (Ciprofloxacin Hcl*) 250 Mg Tablet, 250 MG PO BID for 3 Days, #6 TAB Prov:JENNIFER CHOE MD 09/21/18 Benzoyl Peroxide (ACNE TREATMENT) 28 Gm Gel..gram., 28 GM TP BID for 30 Days Prov:EUGENIE AUSTIN MD 09/15/18 Doxycycline Monohydrate* (Doxycycline Monohydrate*) 100 Mg Tablet, 100 MG PO BID for 14 Days, TAB Prov:EUGENIE AUSTIN MD 09/15/18 Promethazine HCl/Codeine (Prometh-Codein 6.25-10 mg/5 ml) 5 Ml Syrup, 5 ML PO QHS for 5 Days 4 oz Prov:EUGENIE AUSTIN MD 09/15/18 Famotidine* (Pepcid*) 20 Mg Tablet, 20 MG PO BID for 14 Days, #30 TAB Prov:EUGENIE AUSTIN MD 07/05/18 Acetaminophen* (Tylophen*) 500 Mg Capsule, 1 CAP PO Q6H PRN for PAIN AND OR ELEVATED TEMP, #15 CAP Prov:EUGENIE AUSTIN MD 07/05/18 Mupirocin* (Bactroban*) 2% -22 Gram Oint...g., 1 APPLIC TOP BID for 7 Days, EA Prov:CINTHIA VANESSA PA-C 04/15/18 Naproxen* (Naprosyn*) 500 Mg Tablet, 500 MG PO BID PRN for PAIN AND/OR INFLAMMATION, #30 TAB Prov:CINTHIA VANESSA PA-C 04/15/18 Loratadine* (Claritin*) 10 Mg Tablet, 10 MG PO DAILY for 15 Days, #15 TAB Prov:JUWAN,RYAN 02/10/18 Diphenhydramine Hcl* (Benadryl*) 25 Mg Cap, 25 MG PO Q6, #30 CAP Prov:JUWAN,RYAN 02/10/18 Hydrocortisone* Topical (Hydrocortisone* Topical) 2.5%-28.3 Gm Cream..g., 1 APPLIC TOP BID for 7 Days, #1 TUB Prov:JUWAN,RYAN 02/10/18 Ibuprofen* (Motrin*) 600 Mg Tab, 600 MG PO Q6, #30 TAB Prov:NELLIE CLEMENTE PA-C 01/17/17 Dicyclomine HCl (Dicyclomine HCl) 10 Mg Capsule, 10 MG PO QID, #15 CAP Prov:WEST LAWSON PA-C 11/03/16 Docusate Sodium* (Colace*) 100 Mg Capsule, 100 MG PO TID, #30 CAP Prov:WEST LAWSON PA-C 11/03/16 Hydrocodone/Acetaminophen ([place] 5-325 Tablet) 1 Each Tablet, 1 TAB PO Q6H PRN for PAIN, #20 TAB Prov:GERSON SANTAMARIA PA-C 09/30/16 Ibuprofen* (Motrin*) 800 Mg Tab, 800 MG PO Q6, #30 TAB Prov:GERSON SANTAMARIA PA-C 09/30/16 Polyethylene Glycol* (Miralax*) 17 Gm Powd.pack, 17 GM PO DAILY PRN for CO NSTIPATION, #7 Prov:JOSE JUDD MD 09/24/16 Ibuprofen* (Motrin*) 600 Mg Tab, 600 MG PO Q6H PRN for PAIN AND OR ELEVATED TEMP, #30 TAB Prov:ANETTE BURNETT MD 09/18/16 Hydrocodone/Acetaminophen ([place] 5-325 Tablet) 1 Each Tablet, 1 TAB PO Q6H PRN for PAIN, #10 TAB Prov:WEST LAWSON PA-C 07/14/16 Hydrocodone/Acetaminophen ([place] 10-325 Tablet) 1 Each Tablet, 1 TAB PO Q6H PRN for PAIN, #7 TAB Prov:ANETTE BURNETT MD 07/08/16 Cephalexin* (Cephalexin*) 500 Mg Capsule, 500 MG PO TID, #21 CAP Prov:JUAN DON MD 07/07/16 Oxycodone Hcl/Acetaminophen (Percocet) 1 Tab Tab, 1 TAB PO Q4H PRN for MILD PAIN (1-3), #1 TAB Prov:JUAN DON MD 07/07/16 Allergies Allergies: Coded Allergies: No Known Allergy (Unverified , 10/12/18) PMhx/Soc History of Surgery: Yes (appendectomy on 07/06/16) Anesthesia Reaction: No Hx Neurological Disorder: No Hx Respiratory Disorders: No Hx Cardiac Disorders: No Hx Psychiatric Problems: No Hx Miscellaneous Medical Probl: No Hx Alcohol Use: Yes (ocassional ) Hx Substance Use: Yes (occasional marijuana) Hx Tobacco Use: No FmHx Family History: No diabetes, No coronary disease, No other Physical Exam Vitals Vital Signs Date Temp Pulse Resp B/P (MAP) Pulse Ox O2 O2 Flow FiO2 Time Delivery Rate 12/30/18 98.0 67 18 131/77 100 10:18 (95) Physical Exam GENERAL APPEARANCE: Well developed, well nourished, alert and cooperative, and appears to be in no acute distress. HEAD: normocephalic. EYES: PERRL, EOMI. Vision is grossly intact. EARS: External auditory canals and tympanic membranes clear, hearing grossly intact. NOSE: No nasal discharge. THROAT: Oral cavity and pharynx normal. No inflammation, swelling, exudate, or lesions. Teeth and gingiva in good general condition. NECK: Neck supple, non-tender without lymphadenopathy, masses or thyromegaly. CARDIAC: Normal S1 and S2. No S3, S4 or murmurs. Rhythm is regular. There is no peripheral edema, cyanosis or pallor. Extremities are warm and well perfused. Capillary refill is less than 2 seconds. No carotid bruits. LUNGS: Clear to auscultation and percussion without rales, rhonchi, wheezing or diminished breath sounds. ABDOMEN: Positive bowel sounds. Soft, non-distended, No guarding or rebound. No murmurs. Neg murphys. Tender with palpation over epigastrum. MUSCULOSKELETAL: Adequately aligned spine. ROM intact spine and extremities. No joint erythema or tenderness. Normal muscular development. Normal gait. NEUROLOGICAL: CN II-XII intact. Strength and sensation symmetric and intact throughout. SKIN: Skin normal color, texture and turgor with no lesions or eruptions PSYCHIATRIC: The mental examination revealed the patient was oriented to person, place, and time. The patient was able to demonstrate good judgment and reason, without hallucinations, abnormal affect or abnormal behaviors during the examination. Patient is not suicidal. Results 24 hrs Laboratory Tests Test 12/30/18 11:01 12/30/18 11:24 Stool Occult Blood NEGATIVE Bedside Urine pH (LAB) 7.0 Bedside Urine Protein (LAB) Negative Bedside Urine Glucose (UA) Negative Bedside Urine Ketones (LAB) Negative Bedside Urine Blood Trace-lysed Bedside Urine Nitrite (LAB) Negative Bedside Urine Leukocyte Esterase (L Negative Current Medications Medications Dose Sig/Chepe Start Time Status Last (Trade) Ordered Route PRN Stop Time Admin Dose Reason Admin 40 ml ONCE ONCE 12/30/18 DC 12/30/18 Miscellaneous PO 11:30 12/30/18 11:23 Medication 11:31 (Gi Cocktail (2)) 40 mg ONCE ONCE 12/30/18 DC 12/30/18 Pantoprazole PO 11:30 12/30/18 11:23 (Protonix 11:31 Tab) Procedures/MDM Is a 23-year-old male patient who presents to the emergency room with complaint of abdominal pain x3 days. No nausea or vomiting. No fevers. Was provided with GI cocktail with symptomatic relief of symptoms. He is most likely experiencing dyspepsia. "black stool" likely due to use of Pepto Bismol. There is a low suspicion for infection, aneurysm, abscess, malignancy. I do not suspect any cardiac etiology as patient does not complain of chest pain and tenderness is in the upper abdomen. Patient had appendectomy in 2012, and no rig ht upper quadrant pain to suggest cholecystitis. Patient was [facility]. Patient was given instructions on preventing acid reflux. The patient presents with abdominal pain without definite explanation found on evaluation today. However, there are no signs of peritonitis or other life- threatening or serious etiology. The patient appears stable for discharge and has been instructed to return immediately if the symptoms worsen in any way, or in 8-12 hours if not improved for re-evaluation. Departure Diagnosis: Primary Impression: GERD (gastroesophageal reflux disease) Condition: Stable Patient Instructions: Gastroesophageal Reflux Disease (GERD) Referrals: [facility] Additional Instructions: Thank you very much for allowing us to participate in your care. Your health and safety is our top priority at [facility]. Call your primary care doctor TOMORROW for an appointment during the next 2-4 days and bring all the information and medications prescribed. Have prescriptions filled and follow precisely the directions on the label. If the symptoms get worse and your provider is unavailable, return to the Emergency Department immediately. YOU HAVE BEEN PROVIDED WITH A PRESCRIPTION FOR PROTONIX. TAKE FIRST DOSE TOMORROW, 12/31/18. TAKE THIS MEDICATION DAILY, EITHER IN THE MORNING 30 MIN PRIOR TO FIRST MEAL, OR AT BEDTIME. PLEASE READ PROVIDED INSTRUCTIONS, AVOID ALCOHOL, CAFFEINE, FATTENING FOODS, SPICY FOOD. YOU HAVE BEEN PROVIDED WITH COMMUNITY RESOURCES. PLEASE ESTABLISH CARE WITH PRIMARY CARE PROVIDER YOU MAY NEED FURTHER TESTING AND REFERRAL TO [facility]. DUYEN RAE NP Dec 30, 2018 12:23
[2018-12-30] MEDS ORDERED: PANT40TA3 PO (12:26)
== END 2018-12-30 12:34 | disposition home or self-care (01) ==
LOC: FTE 10:17
DX: K21.9 Gastro-esophageal reflux disease without esophagitis (principal)
CPT/HCPCS: 81003; 82270; Z7502; Z7610; 99283

== ENCOUNTER 2019-01-05 11:17 | Emergency (ER) | payer OTHER ==
[~2019-01-05] VITALS: Ht 177.8 cm; Wt 95.0 kg
[~2019-01-05 11:17] MED LIST changes: +PANT40TA3 PO
[2019-01-05 11:19] VITALS: BP 131/60; PULSE 87; RESP 20; Ht 177.8 cm; Wt 95.0 kg
[2019-01-05] MEDS ORDERED: ONDANSETRON (ODT) 4 MG TAB ODT STA (12:41)
[2019-01-05] MEDS ORDERED: ACETAMINOPHEN 325 MG TAB PO ONE (13:00)
[2019-01-05] MEDS ORDERED: ACET500C5 PO (14:43)
[2019-01-05] MEDS ORDERED: ONDA4TAB14 PO (14:43)
--- NOTE | 2019-01-05 14:56 | ERD ---
ER Documentation Chief Complaint Chief Complaint Complains of headache and dizziness x 2 days S/P object fell on head HPI 23-year-old male presents to ED complaining of headache and dizziness. Patient states that while at work and approximately 10 pound object fell from a shelf striking his head. States that he went to his primary care doctor immediately after and was told that he had a concussion. He began to experience headache, lightheadedness, blurry vision , nausea, and vomiting. Patient then returned to his primary care where again he was told that he had a concussion and that a CT of his head was unwarranted. Patient presents to the ED immediately after leaving his primary care complaining of the same symptoms. Patient denies any past medical history other than GERD. Patient had his appendix removed in 2014. He is currently taking Tylenol for his headache. He has no known drug allergies. He denies alcohol tobacco, although, he admits to occasional marijuana use. ROS All systems reviewed and are negative except as per history of present illness. Medications Home Meds Active Scripts Ondansetron (Ondansetron Odt) 4 Mg Tab.rapdis, 4 MG PO Q6H PRN for NAUSEA AND/OR VOMITING, #10 TAB Prov:AMY DEVI PA-C 01/05/19 Acetaminophen* (Tylophen*) 500 Mg Capsule, 1 CAP PO Q6H PRN for PAIN AND OR ELEVATED TEMP, #20 CAP Prov:AMY DEVI PA-C 01/05/19 Pantoprazole* (Protonix*) 40 Mg Tablet.dr, 40 MG PO DAILY, #30 TAB Prov:DUYEN RAE NP 12/30/18 Albuterol Sulfate* (Proair HFA*) 8.5 Gm Hfa.aer.ad, 2 PUFF INH Q4, #1 INHALER Prov:GABINO CEBALLOS PA-C 10/12/18 Benzonatate* (Tessalon Perle*) 100 Mg Capsule, 100 MG PO Q8H PRN for COUGH, #30 CAP Prov:GABINO CEBALLOS PA-C 10/12/18 Promethazine Hcl* (Promethazine Hcl* Syrup) 6.25 Mg/5 Ml Syrup, 6.25 MG PO Q6H PRN for COUGH, #100 ML Prov:GABINO CEBALLOS PA-C 10/12/18 Ondansetron Hcl* (Zofran*) 4 Mg Tablet, 4 MG PO Q6H for NAUSEA AND/OR VOMITING, #12 TAB Prov:JENNIFER CHOE MD 09/21/18 Ranitidine Hcl* (Zantac*) 150 Mg Tablet, 150 MG PO BID PRN for EPIGASTRIC PAIN for 5 Days, #10 TAB Prov:JENNIFER CHOE MD 09/21/18 Ciprofloxacin Hcl* (Ciprofloxacin Hcl*) 250 Mg Tablet, 250 MG PO BID for 3 Days, #6 TAB Prov:JENNIFER CHOE MD 09/21/18 Benzoyl Peroxide (ACNE TREATMENT) 28 Gm Gel..gram., 28 GM TP BID for 30 Days Prov:EUGENIE AUSTIN MD 09/15/18 Doxycycline Monohydrate* (Doxycycline Monohydrate*) 100 Mg Tablet, 100 MG PO BID for 14 Days, TAB Prov:EUGENIE AUSTIN MD 09/15/18 Promethazine HCl/Codeine (Prometh-Codein 6.25-10 mg/5 ml) 5 Ml Syrup, 5 ML PO QHS for 5 Days 4 oz Prov:EUGENIE AUSTIN MD 09/15/18 Famotidine* (Pepcid*) 20 Mg Tablet, 20 MG PO BID for 14 Days, #30 TAB Prov:EUGENIE AUSTIN MD 07/05/18 Acetaminophen* (Tylophen*) 500 Mg Capsule, 1 CAP PO Q6H PRN for PAIN AND OR ELEVATED TEMP, #15 CAP Prov:EUGENIE AUSTIN MD 07/05/18 Mupirocin* (Bactroban*) 2% -22 Gram Oint...g., 1 APPLIC TOP BID for 7 Days, EA Prov:CINTHIA VANESSA PA-C 04/15/18 Naproxen* (Naprosyn*) 500 Mg Tablet, 500 MG PO BID PRN for PAIN AND/OR INFLAMMATION, #30 TAB Prov:CINTHIA VANESSA PA-C 04/15/18 Loratadine* (Claritin*) 10 Mg Tablet, 10 MG PO DAILY for 15 Days, #15 TAB Prov:JUWANRYAN 02/10/18 Diphenhydramine Hcl* (Benadryl*) 25 Mg Cap, 25 MG PO Q6, #30 CAP Prov:JUWAN,RYAN 02/10/18 Hydrocortisone* Topical (Hydrocortisone* Topical) 2.5%-28.3 Gm Cream..g., 1 APPLIC TOP BID for 7 Days, #1 TUB Prov:JUWAN,RYAN 02/10/18 Ibuprofen* (Motrin*) 600 Mg Tab, 600 MG PO Q6, #30 TAB Prov:NELLIE CLEMENTE PA-C 01/17/17 Dicyclomine HCl (Dicyclomine HCl) 10 Mg Capsule, 10 MG PO QID, #15 CAP Prov:WEST LAWSON PA-C 11/03/16 Docusate Sodium* (Colace*) 100 Mg Capsule, 100 MG PO TID, #30 CAP Prov:WEST LAWSON PA-C 11/03/16 Hydrocodone/Acetaminophen ([place] 5-325 Tablet) 1 Each Tablet, 1 TAB PO Q6H PRN for PAIN, #20 TAB Prov:GERSON SANTAMARIA PA-C 09/30/16 Ibuprofen* (Motrin*) 800 Mg Tab, 800 MG PO Q6, #30 TAB Prov:GERSON SANTAMARIA PA-C 09/30/16 Polyethylene Glycol* (Miralax*) 17 Gm Powd.pack, 17 GM PO DAILY PRN for CONSTIPATION, #7 Prov:JOSE JUDD MD 09/24/16 Ibuprofen* (Motrin*) 600 Mg Tab, 600 MG PO Q6H PRN for PAIN AND OR ELEVATED TEMP, #30 TAB Prov:ANETTE BURNETT MD 09/18/16 Hydrocodone/Acetaminophen ([place] 5-325 Tablet) 1 Each Tablet, 1 TAB PO Q6H PRN for PAIN, #10 TAB Prov:WEST LAWSON PA-C 07/14/16 Hydrocodone/Acetaminophen ([place] 10-325 Tablet) 1 Each Tablet, 1 TAB PO Q6H PRN for PAIN, #7 TAB Prov:ANETTE BURNETT MD 07/08/16 Cephalexin* (Cephalexin*) 500 Mg Capsule, 500 MG PO TID, #21 CAP Prov:JUAN DON MD 07/07/16 Oxycodone Hcl/Acetaminophen (Percocet) 1 Tab Tab, 1 TAB PO Q4H PRN for MILD PAIN (1-3), #1 TAB Prov:JUAN DON MD 07/07/16 Allergies Allergies: Coded Allergies: No Known Allergy (Unverified , 10/12/18) PMhx/Soc History of Surgery: Yes (appendectomy on 07/06/16) Anesthesia Reaction: No Hx Neurological Disorder: No Hx Respiratory Disorders: No Hx Cardiac Disorders: No Hx Psychiatric Problems: No Hx Miscellaneous Medical Probl: No Hx Alcohol Use: Yes (ocassional ) Hx Substance Use: Yes (occasional marijuana) Hx Tobacco Use: No FmHx Family History: No diabetes, No coronary disease Physical Exam Vitals Vital Signs Date Temp Pulse Resp B/P (MAP) Pulse Ox O2 O2 Flow FiO2 Time Delivery Rate 01/05/19 98.6 87 20 131/60 99 11:19 (83) Physical Exam Const: Jio-[id number]-fpsjsqewy, well-nourished. In no acute distress. Head: Atraumatic, normocephalic. No hematoma. No sainz sign. No raccoon eyes. Eyes: Normal Conjunctiva without injection. No purulent discharge. PERRLA. EOMI ENT: Normal external ear. Ear canal without erythema. Tympanic membrane pearly cheng without effusion or bulging. No Hemotympanum. Nasal canal clear with normal turbinates. Moist oropharynx without tonsillar exudates. Non-erythematous pharynx. Uvula midline. No drooling. No trismus. Neck: No cervical midline tenderness. Full range of motion. No meningismus. No cervical lymphadenopathy. No JVD. Resp: Clear to auscultation bilaterally. No wheezing, rhonchi, rales, or crackles. No accessory muscle use. No retractions. Cardio: Regular rate and rhythm. No murmurs, rubs or gallops. Abd: Soft, non tender, non distended. Normal bowel sounds. No palpable masses. No rebound tenderness. No guarding. Negative McBurney's Point. Negative Blount's Sign. Skin: Normal skin turgor. No petechiae or rashes Back: No midline tenderness. No CVA tenderness. Ext: No cyanosis, or edema. Distal pulses intact bilaterally. Neur: Awake and alert. Normal gait. Normal coordination. Cranial Nerves II- VII intact. Normal finger to nose. Muscle strength 5/5. Sensation intact. Psych: Normal Mood and Affect Results 24 hrs Current Medications Medications Dose Sig/Chepe Start Time Status Last (Trade) Ordered Route PRN Stop Time Admin Dose Reason Admin Ondansetron 4 mg ONCE STAT 01/05/19 DC 01/05/19 HCl (Zofran ODT 12:41 12:52 Odt) 01/05/19 12:43 650 mg ONCE ONCE 01/05/19 DC 01/05/19 Acetaminophen PO 13:00 12:53 (Tylenol 01/05/19 13:01 Tab) Procedures/MDM This an otherwise healthy 23-year-old male who presents to the ED complaining of headache and lightheadedness status post object falling from a height and striking his head. The patient did not display any focal neurological deficits due to his continuing symptomatology he was given a CT scan of the head. CT scan showed no acute abnormalities. Patient most likely has a concussion secondary to the trauma he sustained yesterday. He will be discharged with a prescription for acetaminophen and Zofran. I have a low suspicion for subarachnoid hemorrhage, intracranial hemorrhage, subdural hematoma, epidural hematoma, acute skull fracture, stroke, TIA, carotid dissection, acute glaucoma or any other emergent conditions. IMPRESSION: Unremarkable noncontrast CT of the brain. Diagnosis: Headache Discharge medications: Tylenol, Zofran Follow up with primary care physician in 1-2 days. Instructed patient to return to the ED sooner for any worsening symptoms. Patient's questions were answered. Patient is hemodynamically stable. Patient understood and agreed with discharge plan. Patient discharged stable. Disclaimer: Inadvertent spelling and grammatical errors are likely due to EHR/dictation software use and do not reflect on the overall quality of patient care. Also, please note that the electronic time recorded on this note does not necessarily reflect the actual time of the patient encounter. Departure Diagnosis: Primary Impression: Head injury Encounter type: initial encounter Qualified Codes: S09.90XA - Unspecified injury of head, initial encounter Condition: Stable Patient Instructions: Concussion, HEAD INJURY, No Wake-Up (Adult) Referrals: COMMUNITY CLINICS YOU HAVE RECEIVED A MEDICAL SCREENING EXAM AND THE RESULTS INDICATE THAT YOU DO NOT HAVE A CONDITION THAT REQUIRES URGENT TREATMENT IN THE EMERGENCY DEPARTMENT. FURTHER EVALUATION AND TREATMENT OF YOUR CONDITION CAN WAIT UNTIL YOU ARE SEEN IN YOUR DOCTORS OFFICE WITHIN THE NEXT 1-2 DAYS. IT IS YOUR RESPONSIBILITY TO MAKE AN APPOINTMENT FOR FOLOW-UP CARE. IF YOU HAVE A PRIMARY DOCTOR --you should call your primary doctor and schedule an appointment IF YOU DO NOT HAVE A PRIMARY DOCTOR YOU CAN CALL OUR PHYSICIAN REFERRAL HOTLINE AT IF YOU CAN NOT AFFORD TO SEE A PHYSICIAN YOU CAN CHOSE FROM THE FOLLOWING [facility] [address] [facility] [address] [facility] [address] [facility] [address] [facility] [address] [facility]. [facility] [address] [facility]. [facility] YOU HAVE RECEIVED A MEDICAL SCREENING EXAM AND THE RESULTS INDICATE THAT YOU DO NOT HAVE A CONDITION THAT REQUIRES URGENT TREATMENT IN THE EMERGENCY DEPARTMENT. FURTHER EVALUATION AND TREATMENT OF YOUR CONDITION CAN WAIT UNTIL YOU ARE SEEN IN YOUR DOCTORS OFFICE WITHIN THE NEXT 1-2 DAYS. IT IS YOUR RESPONSIBILITY TO MAKE AN APPOINTMENT FOR FOLOW-UP CARE. IF YOU HAVE A PRIMARY DOCTOR --you should call your primary doctor and schedule and appointment IF YOU DO NOT HAVE A PRIMARY DOCTOR YOU CAN CALL OUR PHYSICIAN REFERRAL HOTLINE AT . IF YOU CAN NOT AFFORD TO SEE A PHYSICIAN YOU CAN CHOSE FROM THE FOLLOWING [facility]: [facility] [address] [place] [address] [facility] [address] [place] [address] [facility] [address] [place] [address] [facility] Additional Instructions: Call your primary care doctor TOMORROW for an appointment during the next 2-3 days.See the doctor sooner or return here if your condition worsens before your appointment time. AMY DEVI PA-C Jan 05, 2019 14:56
== END 2019-01-05 14:55 | disposition home or self-care (01) ==
LOC: FTE 11:17
DX: S09.90XA Unspecified injury of head, initial encounter (principal); R42 Dizziness and giddiness; W01.198A Fall on same level from slipping, tripping and stumbling with subsequent striking against other object, initial encounter; Y92.9 Unspecified place or not applicable
CPT/HCPCS: 70450; Z7502; Z7610

== ENCOUNTER 2019-01-07 17:07 | Emergency (ER) | payer OTHER ==
[~2019-01-07] VITALS: Ht 180.3 cm; Wt 81.7 kg
[~2019-01-07 17:07] MED LIST changes: +ONDA4TAB14 PO
[2019-01-07 17:09] VITALS: BP 124/74; PULSE 80; RESP 17; Ht 180.3 cm; Wt 81.7 kg
--- NOTE | 2019-01-07 19:07 | ERD ---
ER Documentation Chief Complaint Chief Complaint RECHECK OF HEAD INJURY. DX OF CONCUSSION ON WEDNESDAY. HPI 23-year-old healthy male with no past medical or surgical history who presents for follow-up after being diagnosed with a concussion on Wednesday. Patient presented to this ED after he had a display fall on his head at his workplace. CT of the head at that time was normal without acute findings. Since being discharged from the emergency room patient has had intermittent dizziness and intermittent nausea but no symptoms of vomiting. Dizziness mostly when he goes from sitting to standing position. He has some photophobia but improved from previous. At time of examination he is asking for medical records as well as a work note. He otherwise is without symptoms and reports that he is doing relatively where [facility]. ROS All systems reviewed and are negative except as per history of present illness. Medications Home Meds Active Scripts Ondansetron (Ondansetron Odt) 4 Mg Tab.rapdis, 4 MG PO Q6H PRN for NAUSEA AND/OR VOMITING, #10 TAB Prov:AMY DEVI PA-C 01/05/19 Acetaminophen* (Tylophen*) 500 Mg Capsule, 1 CAP PO Q6H PRN for PAIN AND OR ELEVATED TEMP, #20 CAP Prov:AMY DEVI PA-C 01/05/19 Pantoprazole* (Protonix*) 40 Mg Tablet.dr, 40 MG PO DAILY, #30 TAB Prov:DUYEN RAE NP 12/30/18 Albuterol Sulfate* (Proair HFA*) 8.5 Gm Hfa.aer.ad, 2 PUFF INH Q4, #1 INHALER Prov:GABINO CEBALLOS PA-C 10/12/18 Benzonatate* (Tessalon Perle*) 100 Mg Capsule, 100 MG PO Q8H PRN for COUGH, #30 CAP Prov:GABINO CEBALLOS PA-C 10/12/18 Promethazine Hcl* (Promethazine Hcl* Syrup) 6.25 Mg/5 Ml Syrup, 6.25 MG PO Q6H PRN for COUGH, #100 ML Prov:GABINO CEBALLOS PA-C 10/12/18 Ondansetron Hcl* (Zofran*) 4 Mg Tablet, 4 MG PO Q6H for NAUSEA AND/OR VOMITING, #12 TAB Prov:JENNIFER CHOE MD 09/21/18 Ranitidine Hcl* (Zantac*) 150 Mg Tablet, 150 MG PO BID PRN for EPIGASTRIC PAIN for 5 Days, #10 TAB Prov:JENNIFER CHOE MD 09/21/18 Ciprofloxacin Hcl* (Ciprofloxacin Hcl*) 250 Mg Tablet, 250 MG PO BID for 3 Days, #6 TAB Prov:JENNIFER CHOE MD 09/21/18 Benzoyl Peroxide (ACNE TREATMENT) 28 Gm Gel..gram., 28 GM TP BID for 30 Days Prov:EUGENIE AUSTIN MD 09/15/18 Doxycycline Monohydrate* (Doxycycline Monohydrate*) 100 Mg Tablet, 100 MG PO BID for 14 Days, TAB Prov:EUGENIE AUSTIN MD 09/15/18 Promethazine HCl/Codeine (Prometh-Codein 6.25-10 mg/5 ml) 5 Ml Syrup, 5 ML PO QHS for 5 Days 4 oz Prov:EUGENIE AUSTIN MD 09/15/18 Famotidine* (Pepcid*) 20 Mg Tablet, 20 MG PO BID for 14 Days, #30 TAB Prov:EUGENIE AUSTIN MD 07/05/18 Acetaminophen* (Tylophen*) 500 Mg Capsule, 1 CAP PO Q6H PRN for PAIN AND OR ELEVATED TEMP, #15 CAP Prov:EUGENIE AUSTIN MD 07/05/18 Mupirocin* (Bactroban*) 2% -22 Gram Oint...g., 1 APPLIC TOP BID for 7 Days, EA Prov:CINTHIA VANESSA PA-C 04/15/18 Naproxen* (Naprosyn*) 500 Mg Tablet, 500 MG PO BID PRN for PAIN AND/OR INFLAMMATION, #30 TAB Prov:CINTHIA VANESSA PA-C 04/15/18 Loratadine* (Claritin*) 10 Mg Tablet, 10 MG PO DAILY for 15 Days, #15 TAB Prov:JUWAN,RYAN 02/10/18 Diphenhydramine Hcl* (Benadryl*) 25 Mg Cap, 25 MG PO Q6, #30 CAP Prov:JUWAN,RYAN 02/10/18 Hydrocortisone* Topical (Hydrocortisone* Topical) 2.5%-28.3 Gm Cream..g., 1 APPLIC TOP BID for 7 Days, #1 TUB Prov:JUWAN,RYAN 02/10/18 Ibuprofen* (Motrin*) 600 Mg Tab, 600 MG PO Q6, #30 TAB Prov:NELLIE CLEMENTE PA-C 01/17/17 Dicyclomine HCl (Dicyclomine HCl) 10 Mg Capsule, 10 MG PO QID, #15 CAP Prov:WEST LAWSON PA-C 11/03/16 Docusate Sodium* (Colace*) 100 Mg Capsule, 100 MG PO TID, #30 CAP Prov:WEST LAWSON PA-C 11/03/16 Hydrocodone/Acetaminophen ([place] 5-325 Tablet) 1 Each Tablet, 1 TAB PO Q6H PRN for PAIN, #20 TAB Prov:GERSON SANTAMARIA PA-C 09/30/16 Ibuprofen* (Motrin*) 800 Mg Tab, 800 MG PO Q6, #30 TAB Prov:GERSON SANTAMARIA PA-C 09/30/16 Polyethylene Glycol* (Miralax*) 17 Gm Powd.pack, 17 GM PO DAILY PRN for CONSTIPATION, #7 Prov:JOSE JUDD MD 09/24/16 Ibuprofen* (Motrin*) 600 Mg Tab, 600 MG PO Q6H PRN for PAIN AND OR ELEVATED TEMP, #30 TAB Prov:ANETTE BURNETT MD 09/18/16 Hydrocodone/Acetaminophen ([place] 5-325 Tablet) 1 Each Tablet, 1 TAB PO Q6H PRN for PAIN, #10 TAB Prov:WEST LAWSON PA-C 07/14/16 Hydrocodone/Acetaminophen ([place] 10-325 Tablet) 1 Each Tablet, 1 TAB PO Q6H PRN for PAIN, #7 TAB Prov:ANETTE BURNETT MD 07/08/16 Cephalexin* (Cephalexin*) 500 Mg Capsule, 500 MG PO TID, #21 CAP Prov:JUAN DON MD 07/07/16 Oxycodone Hcl/Acetaminophen (Percocet) 1 Tab Tab, 1 TAB PO Q4H PRN for MILD PAIN (1-3), #1 TAB Prov:JUAN DON MD 07/07/16 Allergies Allergies: Coded Allergies: No Known Allergy (Unverified , 10/12/18) PMhx/Soc History of Surgery: Yes (appendectomy on 07/06/16) Anesthesia Reaction: No Hx Neurological Disorder: No Hx Respiratory Disorders: No Hx Cardiac Disorders: No Hx Psychiatric Problems: No Hx Miscellaneous Medical Probl: No Hx Alcohol Use: Yes (ocassional ) Hx Substance Use: Yes (occasional marijuana) Hx Tobacco Use: No FmHx Family History: No diabetes, No coronary disease, No other Physical Exam Vitals Vital Signs Date Temp Pulse Resp B/P (MAP) Pulse Ox O2 O2 Flow FiO2 Time Delivery Rate 01/07/19 98.3 80 17 124/74 99 17:09 (91) Physical Exam I have reviewed the triage vital signs. Const: Well nourished, well developed, appears stated age Eyes: PERRL, no conjunctival injection HENT: NCAT, Neck supple without meningismus CV: RRR, Warm, well-perfused extremities RESP: CTAB, Unlabored respiratory effort GI: soft, non-tender, non-distended, no masses MSK: No gross deformities appreciated Skin: Warm, dry. No rashes Neuro: grossly non focal Psych: Appropriate mood and affect. Procedures/MDM 23-year-old male who presents for follow-up after being diagnosed with concussion. Reports improvement in symptoms but still with intermittent dizziness and nausea but otherwise no concerning symptoms that would warrant emergent evaluation or treatment. He is advised to follow-up with his PMD and instructed on strict return precautions if he develops concerning neurological symptoms such as worsening headache, dizziness, intractable nausea or vomiting. He is otherwise without complaint his exam is reassuring. DISPOSITION PLAN: We discussed follow up with the patient's primary care doctor within 24 to 48 hours. Patient counseled regarding my diagnostic impression and care plan. Prior to discharge all questions answered. Pt agrees with treatment plan and understands strict return precautions. Precautionary instructions provided including instructions to return to the ER if not improving or for any worsening or changing symptoms or concerns. Departure Diagnosis: Primary Impression: Follow-up examination for injury Condition: Stable HARRIET FONSECA PA-C Jan 07, 2019 19:07
== END 2019-01-07 19:13 | disposition home or self-care (01) ==
LOC: FTE 17:07
DX: R42 Dizziness and giddiness (principal)
CPT/HCPCS: 99282

== ENCOUNTER 2019-01-20 17:15 | Emergency (ER) | payer OTHER ==
[~2019-01-20] VITALS: Ht 180.3 cm; Wt 78.9 kg
[2019-01-20 17:36] VITALS: BP 126/63; PULSE 83; RESP 18; Ht 180.3 cm; Wt 78.9 kg
[2019-01-20] MEDS ORDERED: CEFTRIAXONE 250 MG INJ IM ONE (20:00)
[2019-01-20] MEDS ORDERED: AZITHROMYCIN 500 MG TAB PO ONE (20:00)
[2019-01-20] MEDS ORDERED: CIPR500T4 PO (20:03)
--- NOTE | 2019-01-21 01:35 | ERD ---
ER Documentation Chief Complaint Chief Complaint head injury 2 weeks ago but cont to have ortega; painful urination HPI 23-year-old male complaining of painful urination intermittently for the past 2 weeks. He also reports some blood noted in his urine. He does report being sexually active approximately 2 months ago. He denies any penile discharge. He denies any testicular pain. Additionally, the patient also reports intermittent headaches for the past 2 weeks after head injury. He was seen here proximately [address] head was ordered which was reportedly normal. Patient denies any nausea, vomiting, confusion, or other symptoms at this time. ROS All systems reviewed and are negative except as per history of present illness. Medications Home Meds Active Scripts Ciprofloxacin Hcl* (Ciprofloxacin Hcl*) 500 Mg Tablet, 500 MG PO BID for 7 Days, TAB Prov:GEORGE TIRADO PA-C 01/20/19 Ondansetron (Ondansetron Odt) 4 Mg Tab.rapdis, 4 MG PO Q6H PRN for NAUSEA AND/OR VOMITING, #10 TAB Prov:AMY DEVI PA-C 01/05/19 Acetaminophen* (Tylophen*) 500 Mg Capsule, 1 CAP PO Q6H PRN for PAIN AND OR ELEVATED TEMP, #20 CAP Prov:AMY DEVI PA-C 01/05/19 Pantoprazole* (Protonix*) 40 Mg Tablet.dr, 40 MG PO DAILY, #30 TAB Prov:DUYEN RAE NP 12/30/18 Albuterol Sulfate* (Proair HFA*) 8.5 Gm Hfa.aer.ad, 2 PUFF INH Q4, #1 INHALER Prov:GABINO CEBALLOS PA-C 10/12/18 Benzonatate* (Tessalon Perle*) 100 Mg Capsule, 100 MG PO Q8H PRN for COUGH, #30 CAP Prov:GABINO CEBALLOS PA-C 10/12/18 Promethazine Hcl* (Promethazine Hcl* Syrup) 6.25 Mg/5 Ml Syrup, 6.25 MG PO Q6H PRN for COUGH, #100 ML Prov:GABINO CEBALLOS PA-C 10/12/18 Ondansetron Hcl* (Zofran*) 4 Mg Tablet, 4 MG PO Q6H for NAUSEA AND/OR VOMITING, #12 TAB Prov:JENNIFER CHOE MD 09/21/18 Ranitidine Hcl* (Zantac*) 150 Mg Tablet, 150 MG PO BID PRN for EPIGASTRIC PAIN for 5 Days, #10 TAB Prov:JENNIFER CHOE MD 09/21/18 Ciprofloxacin Hcl* (Ciprofloxacin Hcl*) 250 Mg Tablet, 250 MG PO BID for 3 Days, #6 TAB Prov:JENNIFER CHOE MD 09/21/18 Benzoyl Peroxide (ACNE TREATMENT) 28 Gm Gel..gram., 28 GM TP BID for 30 Days Prov:EUGENIE AUSTIN MD 09/15/18 Doxycycline Monohydrate* (Doxycycline Monohydrate*) 100 Mg Tablet, 100 MG PO BID for 14 Days, TAB Prov:EUGENIE AUSTIN MD 09/15/18 Promethazine HCl/Codeine (Prometh-Codein 6.25-10 mg/5 ml) 5 Ml Syrup, 5 ML PO QHS for 5 Days 4 oz Prov:EUGENIE AUSTIN MD 09/15/18 Famotidine* (Pepcid*) 20 Mg Tablet, 20 MG PO BID for 14 Days, #30 TAB Prov:EUGENIE AUSTIN MD 07/05/18 Acetaminophen* (Tylophen*) 500 Mg Capsule, 1 CAP PO Q6H PRN for PAIN AND OR ELEVATED TEMP, #15 CAP Prov:EUGENIE AUSTIN MD 07/05/18 Mupirocin* (Bactroban*) 2% -22 Gram Oint...g., 1 APPLIC TOP BID for 7 Days, EA Prov:CINTHIA VANESSA PA-C 04/15/18 Naproxen* (Naprosyn*) 500 Mg Tablet, 500 MG PO BID PRN for PAIN AND/OR INFLAMMATION, #30 TAB Prov:CINTHIA VANESSA PA-C 04/15/18 Loratadine* (Claritin*) 10 Mg Tablet, 10 MG PO DAILY for 15 Days, #15 TAB Prov:JUWANRYAN 02/10/18 Diphenhydramine Hcl* (Benadryl*) 25 Mg Cap, 25 MG PO Q6, #30 CAP Prov:JUWAN,RYAN 02/10/18 Hydrocortisone* Topical (Hydrocortisone* Topical) 2.5%-28.3 Gm Cream..g., 1 APPLIC TOP BID for 7 Days, #1 TUB Prov:JUWAN,RYAN 02/10/18 Ibuprofen* (Motrin*) 600 Mg Tab, 600 MG PO Q6, #30 TAB Prov:NELLIE CLEMENTE PA-C 01/17/17 Dicyclomine HCl (Dicyclomine HCl) 10 Mg Capsule, 10 MG PO QID, #15 CAP Prov:WEST LAWSON PA-C 11/03/16 Docusate Sodium* (Colace*) 100 Mg Capsule, 100 MG PO TID, #30 CAP Prov:WEST LAWSON PA-C 11/03/16 Hydrocodone/Acetaminophen ([place] 5-325 Tablet) 1 Each Tablet, 1 TAB PO Q6H PRN for PAIN, #20 TAB Prov:GERSON SANTAMARIA PA-C 09/30/16 Ibuprofen* (Motrin*) 800 Mg Tab, 800 MG PO Q6, #30 TAB Prov:GERSON SANTAMARIA PA-C 09/30/16 Polyethylene Glycol* (Miralax*) 17 Gm Powd.pack, 17 GM PO DAILY PRN for CONSTIPATION, #7 Prov:JOSE JUDD MD 09/24/16 Ibuprofen* (Motrin*) 600 Mg Tab, 600 MG PO Q6H PRN for PAIN AND OR ELEVATED TEMP, #30 TAB Prov:ANETTE BURNETT MD 09/18/16 Hydrocodone/Acetaminophen ([place] 5-325 Tablet) 1 Each Tablet, 1 TAB PO Q6H PRN for PAIN, #10 TAB Prov:WEST LAWSON PA-C 07/14/16 Hydrocodone/Acetaminophen ([place] 10-325 Tablet) 1 Each Tablet, 1 TAB PO Q6H PRN for PAIN, #7 TAB Prov:ANETTE BURNETT MD 07/08/16 Cephalexin* (Cephalexin*) 500 Mg Capsule, 500 MG PO TID, #21 CAP Prov:JUAN DON MD 07/07/16 Oxycodone Hcl/Acetaminophen (Percocet) 1 Tab Tab, 1 TAB PO Q4H PRN for MILD PAIN (1-3), #1 TAB Prov:JUAN DON MD 07/07/16 Allergies Allergies: Coded Allergies: No Known Allergy (Unverified , 01/20/19) PMhx/Soc Medical and Surgical Hx: pt denies Medical Hx History of Surgery: Yes (appendectomy on 07/06/16) Anesthesia Reaction: No Hx Neurological Disorder: No Hx Respiratory Disorders: No Hx Cardiac Disorders: No Hx Psychiatric Problems: No Hx Miscellaneous Medical Probl: No Hx Alcohol Use: Yes (ocassional ) Hx Substance Use: Yes (occasional marijuana) Hx Tobacco Use: No Smoking Status: Current some day smoker FmHx Family History: No diabetes Physical Exam Vitals Vital Signs Date Temp Pulse Resp B/P (MAP) Pulse Ox O2 O2 Flow FiO2 Time Delivery Rate 01/20/19 97.6 20:25 01/20/19 97.8 83 18 126/63 100 17:36 (84) Physical Exam Const: No acute distress Head: Atraumatic Eyes: Normal Conjunctiva ENT: Normal External Ears, Nose and Mouth. Neck: Full range of motion. No meningismus. Resp: Clear to auscultation bilaterally Cardio: Regular rate and rhythm, no murmurs Skin: No petechiae or rashes Back: No midline or flank tenderness Ext: No cyanosis, or edema Neur: Awake and alert. No neurological deficits noted. Psych: Normal Mood and Affect Results 24 hrs Laboratory Tests Test 01/20/19 19:21 Bedside Urine pH (LAB) 6.0 Bedside Urine Protein (LAB) 1+ Bedside Urine Glucose (UA) Negative Bedside Urine Ketones (LAB) Trace Bedside Urine Blood 2+ Bedside Urine Nitrite (LAB) Negative Bedside Urine Leukocyte Esterase (L 2+ Current Medications Medications Dose Sig/Chepe Start Time Status Last (Trade) Ordered Route PRN Stop Time Admin Dose Reason Admin Ceftriaxone 250 mg ONCE ONCE 01/20/19 DC 01/20/19 Sodium IM 20:00 20:19 (Rocephin) 01/20/19 20:01 1,000 mg ONCE ONCE 01/20/19 DC 01/20/19 Azithromycin PO 20:00 20:19 (Zithromax) 01/20/19 20:01 Procedures/MDM 20-year-old male presenting to the emergency department with history and physical examination and urinalysis findings consistent with urinary tract infection. Patient is nontoxic and well-appearing. Given the patient's history and exam, I will also treat empirically for chlamydia and gonorrhea. He was administered azithromycin and Rocephin in the department. No evidence to suggest acute surgical abdomen, sepsis, or other emergencies. Patient was otherwise stable for discharge and further outpatient management. The patient was in agreement with the diagnosis, plan, need for follow-up, return precautions. All questions and concerns were addressed prior to discharge. Departure Diagnosis: Primary Impression: UTI (urinary tract infection) Condition: Fair Patient Instructions: Understanding Urinary Tract Infections (UTIs) Referrals: [facility] YOU HAVE RECEIVED A MEDICAL SCREENING EXAM AND THE RESULTS INDICATE THAT YOU DO NOT HAVE A CONDITION THAT REQUIRES URGENT TREATMENT IN THE EMERGENCY DEPARTMENT. FURTHER EVALUATION AND TREATMENT OF YOUR CONDITION CAN WAIT UNTIL YOU ARE SEEN IN YOUR DOCTORS OFFICE WITHIN THE NEXT 1-2 DAYS. IT IS YOUR RESPONSIBILITY TO MAKE AN APPOINTMENT FOR FOLOW-UP CARE. IF YOU HAVE A PRIMARY DOCTOR --you should call your primary doctor and schedule an appointment IF YOU DO NOT HAVE A PRIMARY DOCTOR YOU CAN CALL OUR PHYSICIAN REFERRAL HOTLINE AT IF YOU CAN NOT AFFORD TO SEE A PHYSICIAN YOU CAN CHOSE FROM THE FOLLOWING [facility][1] [address] [facility]. [facility] [address] [facility]. [facility] [address] [facility]. [facility] [address] [facility]. [facility] [address] [facility]. [facility]. [address] Additional Instructions: Call your primary care doctor TOMORROW for an appointment during the next 1-2 days.See the doctor sooner or return here if your condition worsens before your appointment time. GEORGE TIRADO PA-C Jan 21, 2019 01:35
== END 2019-01-20 20:25 | disposition home or self-care (01) ==
LOC: FTE 17:15
DX: N39.0 Urinary tract infection, site not specified (principal)
CPT/HCPCS: 81003; 96372; J0696; Z7502; Z7610

== ENCOUNTER 2019-06-23 12:24 | Emergency (ER) | payer OTHER ==
[~2019-06-23] VITALS: Ht 177.8 cm; Wt 83.7 kg
[~2019-06-23 12:24] MED LIST changes: +ACET-141 PO; +CIPR500T4 PO; -DOXY100T21 PO; +DOXY100T34 PO; +RANI-535 PO; -RANI150T35 PO
[2019-06-23 12:26] VITALS: BP 122/58; PULSE 80; RESP 16; Ht 177.8 cm; Wt 83.7 kg
== END 2019-06-23 13:05 | disposition home or self-care (01) ==
LOC: E/R 12:24
DX: M79.605 Pain in left leg (principal); M79.604 Pain in right leg
CPT/HCPCS: 99282